=== PATIENT | male | born 1940 | race Caucasian/White ===

== ENCOUNTER → 2018-05-10 | Outpatient (CLI) | payer MEDICARE, OTHER ==
[2016-03-10 17:35] VITALS: BMI 31.2
[~2018-05-10] MED LIST: ASPI-757 PO; CELE-1 PO; DIA5 PO; HYDR-2966 PO; HYDR-654 PO; LISI-374 PO; REGADENOSON 0.4 MG/5 ML SYR ONE
--- NOTE | 2018-05-10 15:27 | RT STRESS TEST REPORT ---
FACILITY: [facility] [place] PATIENT NAME: ALICE VOGT : [id number] MR: [id number]: [id number] EXAM DATE: ORDERING PHYSICIAN: Cecilio Villasenor TECHNOLOGIST: Eliseo [employer] Time: 2018-05-10 14:34:03 Total Exercise Time: 00:01:00 Test Indications: Medications: SEE NUC MED SHEET Protocol: LEXISCAN Max HR: 075 BPM 52% of Pred: 144 BPM Max BP: 115/084 mmHG Max Work Load: 1.0 METS Stress was performed using Lexiscan Protocol. He did not have any significant symptoms with the infus ion. His baseline EKG shows ventricular paced rhythm. No EKG changes or dysrhythmias were noted. Recovery was uneventful. Await [place] images. Confirmed by ABEL PARKS ([id number]) on 05/10/2018 3:27:00 PM Referred By: ABEL PARKS Overread By: ABLE PARKS
== END ==
LOC: NUC 01:08
PROVIDERS: ATTEND Internal Medicine Cardiovascular Disease
DX: I50.42 Chronic combined systolic (congestive) and diastolic (congestive) heart failure (principal)
CPT/HCPCS: 78452; 93017; A9500; J2785